=== PATIENT | female | born 1995 | race African-American/Black ===

== ENCOUNTER 2019-09-19 | Emergency (ER) | payer MEDICAID ==
[2019-09-19 15:49] LABS: HEMOGLOBIN 12.4 g/dl (12.0-16.0); IMMATURE GRANULOCYTES 0.3 % (0.0-5.0); MEAN CELL VOLUME 87.4 fL CALC (80.0-100.0); MEAN CORPUSCULAR HGB 27.8 pG CALC (26.0-32.0); MEAN CORPUSCULAR HGB CONC 31.8 g/L CALC (32.0-36.0); NEUT# 3.97 thou/uL (2.00-7.15); RED BLOOD COUNT 4.46 mill/uL (4.20-5.60); RED CELL DISTRI WIDTH 14.2 % (11.5-15.5)
[2019-09-19 15:56] LABS: URINE BILIRUBIN - DIPSTICK NEGATIVE (NEGATIVE); URINE BLOOD DIPSTICK NEGATIVE (NEGATIVE); URINE COLOR YELLOW; URINE GLUCOSE - DIPSTICK NEGATIVE (NEGATIVE); URINE KETONE NEGATIVE (NEGATIVE); URINE NITRITE - DIPSTICK NEGATIVE (Negative); URINE PROTEIN - DIPSTICK NEGATIVE (NEG-TRACE); URINE UROBILINOGEN - DIPSTICK 0.2 E.U./dL (0.2)
[2019-09-19 16:00] LABS: URINE LEUK ESTERASE SMALL (NEGATIVE)
[2019-09-19 16:11] LABS: ALBUMIN 4.3 g/dL (3.2-5.0); ALKALINE PHOSPHATASE 51 u/l (38-126); ANION GAP 12 (6-22 (CALC)); BILIRUBIN, TOTAL 0.2 mg/dL (0.0-1.4); BUN 10 mg/dL (7-17); BUN/CREATININE RATIO 12 (12-20 (CALC)); CARBON DIOXIDE 28 mmol/l (22-30); CHLORIDE 103 mmol/l (95-108); CREATININE 0.9 mg/dL (0.5-1.0); GFR > 60 ML/MIN (>=60 (CALC)); GFR FOR AFR.AMER. > 60 ML/MIN (>=60 (CALC)); LIPASE 19 u/l (23-300); SGOT/AST 26 u/l (14-36); SODIUM 139 mmol/l (137-146); TOTAL PROTEIN 8.5 g/dL (6.3-8.2)
[2019-09-19 17:12] LABS: URINE SQUAMOUS EPITHELIAL CELL FEW EPI/hpf (0-FEW)
[2019-09-19] MEDS ORDERED: CEPHALEXIN500 M1 PO (17:57)
== END 2019-09-19 18:15 | disposition home or self-care (01) ==
PROVIDERS: Family Medicine
DX: R10.31 Right lower quadrant pain (principal); R10.11 Right upper quadrant pain; F17.210 Nicotine dependence, cigarettes, uncomplicated

== ENCOUNTER 2021-08-06 15:18 | Emergency (ER) | payer MEDICAID ==
[~2021-08-06] VITALS: Ht 165.1 cm; Wt 65.0 kg
[~2021-08-06 15:18] MED LIST: CEPHALEXIN500 M1 PO
[2021-08-06 16:04] LABS: HEMOGLOBIN 11.5 g/dl (12.0-16.0); IMMATURE GRANULOCYTES 0.4 % (0.0-5.0); MEAN CORPUSCULAR HGB CONC 31.1 g/dL CAL (32.0-36.0); NEUT# 1.98 thou/uL (2.00-7.15); RED BLOOD COUNT 4.11 mill/uL (4.20-5.60); RED CELL DISTRI WIDTH 14.3 % (11.5-15.5)
[2021-08-06 16:20] LABS: ALBUMIN 3.8 g/dL (3.2-5.0); ALKALINE PHOSPHATASE 43 u/l (38-126); ANION GAP 12 (6-22 (CALC)); BUN 8 mg/dL (7-17); BUN/CREATININE RATIO 12 (12-20 (CALC)); CARBON DIOXIDE 24 mmol/l (22-30); CHLORIDE 106 mmol/l (95-108); CREATININE 0.7 mg/dL (0.5-1.0); GFR > 60 ML/MIN (>=60 (CALC)); GFR FOR AFR.AMER. > 60 ML/MIN (>=60 (CALC)); POTASSIUM 3.9 mmol/l (3.5-5.1); SGOT/AST 40 u/l (14-36); SODIUM 138 mmol/l (137-146); TOTAL PROTEIN 7.6 g/dL (6.3-8.2)
[2021-08-06 16:23] LABS: BILIRUBIN, TOTAL 0.5 mg/dL (0.0-1.4)
[2021-08-06] MEDS ORDERED: TAM75CAP PO (17:15)
[2021-08-06 17:34] VITALS: BP 142/85
== END 2021-08-06 18:00 | disposition home or self-care (01) ==
LOC: ED 15:18
PROVIDERS: Family Medicine
DX: J11.1 Influenza due to unidentified influenza virus with other respiratory manifestations (principal); J45.909 Unspecified asthma, uncomplicated; F17.200 Nicotine dependence, unspecified, uncomplicated; Z20.822 Contact with and (suspected) exposure to COVID-19

== ENCOUNTER 2022-03-26 07:21 | Emergency (ER) | payer MEDICAID ==
[2022-03-26] VITALS (7 sets, daily range): BP systolic 125–180; BP diastolic 79–102
[~2022-03-26] VITALS: Ht 165.1 cm; Wt 80.0 kg
[~2022-03-26 07:21] MED LIST changes: +TAM75CAP PO
[2022-03-26] MEDS ORDERED: PREDNISONE50 MG PO (08:08)
[2022-03-26] MEDS ORDERED: PROAIR HFA108 MCG/AC PO (08:08)
[2022-03-26] MEDS ORDERED: AMOX/K CLAV875 M1 PO (08:08)
[2022-03-26] MEDS ORDERED: TAM75CAP PO (08:11)
== END 2022-03-26 08:43 | disposition home or self-care (01) ==
LOC: ED 07:21
DX: K03.81 Cracked tooth (principal); J10.1 Influenza due to other identified influenza virus with other respiratory manifestations; J45.909 Unspecified asthma, uncomplicated; F17.210 Nicotine dependence, cigarettes, uncomplicated

== ENCOUNTER 2022-04-25 11:38 | Emergency (ER) | payer MEDICAID ==
[~2022-04-25] VITALS: Ht 165.1 cm; Wt 73.1 kg
[~2022-04-25 11:38] MED LIST changes: +AMOX/K CLAV875 M1 PO; +PREDNISONE50 MG PO; +PROAIR HFA108 MCG/AC PO
[2022-04-25 12:30] VITALS: BP 112/79
[2022-04-25 13:00] VITALS: BP 124/85
[2022-04-25] MEDS ORDERED: PAXLOVID PO (13:20)
[2022-04-25 13:24] VITALS: BP 124/85
== END 2022-04-25 13:25 | disposition home or self-care (01) ==
LOC: ED 11:38
DX: U07.1 COVID-19 (principal); R50.9 Fever, unspecified; J02.9 Acute pharyngitis, unspecified; R05.9 Cough, unspecified; J45.909 Unspecified asthma, uncomplicated; F17.210 Nicotine dependence, cigarettes, uncomplicated

== ENCOUNTER 2022-07-07 11:17 | Emergency (ER) | payer OTHER ==
[2022-07-07] VITALS (16 sets, daily range): BP systolic 124–146; BP diastolic 77–103
[~2022-07-07] VITALS: Ht 165.1 cm; Wt 68.0 kg
[~2022-07-07 11:17] MED LIST changes: +PAXLOVID PO
[2022-07-07 12:46] LABS: URINE BILIRUBIN - DIPSTICK NEGATIVE (NEGATIVE); URINE BLOOD DIPSTICK SMALL (NEGATIVE); URINE COLOR YELLOW; URINE GLUCOSE - DIPSTICK NEGATIVE (NEGATIVE); URINE KETONE NEGATIVE (NEGATIVE); URINE LEUK ESTERASE NEGATIVE (NEGATIVE); URINE PROTEIN - DIPSTICK NEGATIVE (NEG-TRACE); URINE UROBILINOGEN - DIPSTICK 0.2 E.U./dL (0.2)
[2022-07-07 12:54] LABS: URINE NITRITE - DIPSTICK NEGATIVE (Negative)
[2022-07-07 12:57] LABS: URINE BACTERIA FEW hpf; URINE RBC 0-2 RBC/hpf (0-5); URINE SQUAMOUS EPITHELIAL CELL FEW EPI/hpf (0-FEW); URINE WBC 0-2 WBC/hpf (0-5)
[2022-07-07 12:58] LABS: URINE MUCUS FEW hpf (NONE-FEW)
[2022-07-07 13:10] LABS: HEMATOCRIT 40.9 % (37.0-47.0); HEMOGLOBIN 12.9 g/dl (12.0-16.0); IMMATURE GRANULOCYTES 0.1 % (0.0-5.0); MEAN CELL VOLUME 89.1 fL CALC (80.0-100.0); MEAN CORPUSCULAR HGB 28.1 pG CALC (26.0-32.0); MEAN CORPUSCULAR HGB CONC 31.5 g/dL CAL (32.0-36.0); NEUT# 8.09 thou/uL (2.00-7.15); RED BLOOD COUNT 4.59 mill/uL (4.20-5.60); RED CELL DISTRI WIDTH 14.8 % (11.5-15.5)
[2022-07-07 13:38] LABS: ALBUMIN 4.4 g/dL (3.2-5.0); ALKALINE PHOSPHATASE 54 u/l (38-126); ANION GAP 12 (6-22 (CALC)); BILIRUBIN, TOTAL 0.3 mg/dL (0.0-1.4); BUN 7 mg/dL (7-17); BUN/CREATININE RATIO 10 (12-20 (CALC)); CARBON DIOXIDE 25 mmol/l (22-30); CHLORIDE 107 mmol/l (95-108); CREATININE 0.7 mg/dL (0.5-1.0); GFR FOR AFR.AMER. > 60 ML/MIN (>=60 (CALC)); GFR OTHER RACES > 60 ML/MIN (>=60 (CALC)); LIPASE 28 u/l (23-300); POTASSIUM 4.4 mmol/l (3.5-5.1); SGOT/AST 27 u/l (14-36); SODIUM 140 mmol/l (137-146); TOTAL PROTEIN 7.6 g/dL (6.3-8.2)
[2022-07-07] MEDS ORDERED: PREDNISONE50 MG PO (15:59)
[2022-07-07] MEDS ORDERED: PROTONIX40 M2 PO (15:59)
[2022-07-07] MEDS ORDERED: PROVENTIL HFA IN (15:59)
[2022-07-07] MEDS ORDERED: PROAIR HFA IN (17:00)
== END 2022-07-07 16:24 | disposition home or self-care (01) ==
LOC: ED 11:17
PROVIDERS: Family Medicine
DX: R10.13 Epigastric pain (principal); J45.901 Unspecified asthma with (acute) exacerbation; N83.201 Unspecified ovarian cyst, right side; F17.210 Nicotine dependence, cigarettes, uncomplicated

== ENCOUNTER 2022-08-13 19:08 | Emergency (ER) | payer OTHER ==
[~2022-08-13] VITALS: Ht 165.1 cm; Wt 63.0 kg
[2022-08-13] VITALS (10 sets, daily range): BP systolic 121–146; BP diastolic 74–103
[~2022-08-13 19:08] MED LIST changes: +PROAIR HFA IN; +PROTONIX40 M2 PO; +PROVENTIL HFA IN
[2022-08-13 20:23] LABS: HEMATOCRIT 38.7 % (37.0-47.0); MEAN CELL VOLUME 86.2 fL CALC (80.0-100.0); MEAN CORPUSCULAR HGB CONC 33.6 g/dL CAL (32.0-36.0); NEUT# 3.28 thou/uL (2.00-7.15); RED BLOOD COUNT 4.49 mill/uL (4.20-5.60); RED CELL DISTRI WIDTH 14.1 % (11.5-15.5)
[2022-08-13 20:34] LABS: ALBUMIN 4.4 g/dL (3.2-5.0); ALKALINE PHOSPHATASE 32 u/l (38-126); ANION GAP 13 (6-22 (CALC)); BILIRUBIN, TOTAL 0.6 mg/dL (0.0-1.4); BUN 8 mg/dL (7-17); BUN/CREATININE RATIO 11 (12-20 (CALC)); CARBON DIOXIDE 23 mmol/l (22-30); CHLORIDE 106 mmol/l (95-108); CREATININE 0.7 mg/dL (0.5-1.0); GFR FOR AFR.AMER. > 60 ML/MIN (>=60 (CALC)); GFR OTHER RACES > 60 ML/MIN (>=60 (CALC)); SGOT/AST 34 u/l (14-36); SODIUM 138 mmol/l (137-146)
[2022-08-13] MEDS ORDERED: PREDNISONE50 MG PO (21:10)
[2022-08-13] MEDS ORDERED: AMOXICILLIN500 MG PO (21:10)
[2022-08-13] MEDS ORDERED: TAM75CAP PO (21:10)
[2022-08-13] MEDS ORDERED: VENTOLIN HFA IN (21:10)
== END 2022-08-13 22:18 | disposition home or self-care (01) ==
LOC: ED 19:08
PROVIDERS: Family Medicine
DX: J11.1 Influenza due to unidentified influenza virus with other respiratory manifestations (principal); J45.901 Unspecified asthma with (acute) exacerbation; K08.89 Other specified disorders of teeth and supporting structures; Z20.822 Contact with and (suspected) exposure to COVID-19

== ENCOUNTER 2023-02-15 17:52 | Emergency (ER) | payer OTHER ==
[~2023-02-15] VITALS: Ht 165.1 cm; Wt 72.0 kg
[~2023-02-15 17:52] MED LIST changes: +AMOXICILLIN500 MG PO; +VENTOLIN HFA IN
[2023-02-15 17:57] VITALS: BP 123/91
[2023-02-15 18:00] VITALS: BP 124/84
[2023-02-15 18:15] VITALS: BP 128/83
[2023-02-15] MEDS ORDERED: TRAMADOL HCL50 MG PO (18:17)
[2023-02-15] MEDS ORDERED: VOLTAREN - GENE75 MG PO (18:17)
[2023-02-15] MEDS ORDERED: AMOXICILLIN500 MG PO (18:17)
[2023-02-15 18:26] VITALS: BP 128/83
== END 2023-02-15 18:31 | disposition home or self-care (01) ==
LOC: ED 17:52
DX: K04.7 Periapical abscess without sinus (principal); K02.9 Dental caries, unspecified; K01.1 Impacted teeth; J45.909 Unspecified asthma, uncomplicated

== ENCOUNTER 2023-03-02 07:28 | Emergency (ER) | payer OTHER ==
[~2023-03-02] VITALS: Ht 165.1 cm; Wt 68.0 kg
[~2023-03-02 07:28] MED LIST changes: +TRAMADOL HCL50 MG PO; +VOLTAREN - GENE75 MG PO
[2023-03-02 08:22] VITALS: BP 121/79
== END 2023-03-02 08:30 | disposition home or self-care (01) ==
LOC: ED 07:28
DX: L98.9 Disorder of the skin and subcutaneous tissue, unspecified (principal); J45.909 Unspecified asthma, uncomplicated